=== PATIENT | male | born 1950 | race Caucasian/White ===

== ENCOUNTER 2023-08-27 19:09 | Emergency (ER) | payer OTHER, MEDICARE | END 2023-08-27 20:18 | disposition home or self-care (01) | LOC: FB.ED 19:09 | DX: S81.002A Unspecified open wound, left knee, initial encounter (principal); E11.9 Type 2 diabetes mellitus without complications; I10 Essential (primary) hypertension; E66.9 Obesity, unspecified; Z68.41 Body mass index [BMI] 40.0-44.9, adult; Z79.84 Long term (current) use of oral hypoglycemic drugs; Z79.899 Other long term (current) drug therapy; Z96.652 Presence of left artificial knee joint; W22.8XXA Striking against or struck by other objects, initial encounter | CPT/HCPCS: 99283 ==